=== PATIENT | female | born 1995 | race Caucasian/White ===

== ENCOUNTER 2021-06-25 09:09 | Emergency (ER) | payer OTHER ==
[~2021-06-25] VITALS: Ht 180.3 cm; Wt 95.2 kg
[2021-06-25 09:11] VITALS: BP 115/77
--- OUTSIDE RECORDS SUMMARY | 2021-06-25 09:15 | XMS REPORT | Clinical Summary ---
Author Author [facility] Organization [facility] Address Unknown Phone Unavailable Care Team Providers Care Ed Tech Name Role Phone PCP Unavailable Allergies Not on File Medications Not on file Active Problems Not on file Social History Date Tobacco Use Types Packs/Day Years Used Never Assessed Sex Assigned at Date Recorded Not on file Last Filed Vital Signs Not on file Plan of Treatment Health Maintenance Due Date Last Done Comments Td/Tdap# 1997 HPV Vaccine (1 - 2-dose 2008 series) COVID-19 Vaccine (1) 2009 Cervical Cancer Screening 2018 via Pap Smear Influenza Vaccine (#1) 2021 Pneumococcal Vaccine: Aged Out No longer eligib le based on patient's age to Pediatrics (0 to 5 Years) complete this topic and At-Risk Patients (6 to 64 Years) Results Not on filefrom Last 3 Months Insurance Type Payer Benefit Subscriber ID Effective Phone Address Plan / Dates Group Indemnity [employer] PB [id number] PRETRANSPL -Present ANT
[2021-06-25] MEDS ORDERED: AMOX500C2 PO (09:28)
--- NOTE | 2021-06-25 09:28 | ED EENT ---
History of Present Illness General Chief Complaint: Dental Problems/Pain Stated Complaint: DENTAL PAIN/FACIAL SWELLING Nursing Triage Note: PT C/O L SIDED DENTAL PAIN AND SWELLING. Source: patient Exam Limitations: no limitations History of Present Illness Date Seen by Provider: Jun 25, 2021 Time Seen by Provider: 09:17 Initial Comments Here with report of left upper jaw pain and swelling. Is worried about the swelling and wants to get that taken care of so it does not get worse. She is not having significant pain currently. She knows that she needs to follow with a dentist and will work on that this week. Denies injury or fever. Pain seems to be coming from the premolar on the upper on the left. Timing/Duration: gradual, yesterday Severity: mild Location: mouth, dental Prearrival Treatment: no prearrival treatment Associated Symptoms: No cough, No drooling, No fever, No nasal congestion/drainage, No sinus infection, No tooth pain Allergies and Home Medications Allergies Coded Allergies: No Known Drug Allergies (Unverified , 06/25/21) Home Medications Amoxicillin 500 Mg Capsule, 500 MG PO TID Prescribed by: RHEA BURT on 06/25/21 0928 Patient Home Medication List Home Medication List Reviewed: Yes Review of Systems Review of Systems Constitutional: see HPI; No chills, No fever Ears: No Symptoms Reported Nose: no symptoms reported Mouth: see HPI, pain, swelling Throat: no symptoms reported Respiratory: No cough, No short of breath Gastrointestinal: No nausea, No vomiting Past Exlidfg-Hnbjdu-Azudqa Hx Patient Social History Tobacco Use?: No Substance use?: No Alcohol Use?: Yes Alcohol Frequency: Rarely Pt feels they are or have been: No Past Medical History Surgeries: No Respiratory: No Cardiac: No Physical Exam Vital Signs Vital Signs - First Documented 06/25/21 09:11 Pulse 104 Resp 16 B/P (MAP) 115/77 (90) Pulse Ox 98 O2 Delivery Room Air Height, Weight, BMI Height: '" Weight: lbs. oz. kg; 29.00 BMI Method: General Appearance: WD/WN, no apparent distress Eyes: bilateral eye normal inspection, bilateral eye PERRL, bilateral eye EOMI Mouth/Throat: dental tenderness (14.), maxillary swelling (Left-sided around area #14) Neck: full range of motion, supple, normal inspection Cardiovascular: regular rate, rhythm, no murmur Respiratory: lungs clear, normal breath sounds Neurologic/Psychiatric: alert, oriented x 3 Progress/Results/Core Measures Results/Orders Vital Signs/I&O 06/25/21 09:11 Pulse 104 Resp 16 B/P (MAP) 115/77 (90) Pulse Ox 98 O2 Delivery Room Air Blood Pressure Mean: 90 Progress Progress Note : Progress Note Seen and evaluated. Discharged home with return precautions. Patient verbalized understanding instructions and agreement with plan. We will initiate outpatient amoxicillin. Prescription sent to pharmacy. Patient appreciative. Departure Impression Primary Impression: Dental abscess Disposition: HOME, SELF-CARE Condition: Stable Departure-Patient Inst. Decision time for Depature: 09:26 Referrals: NO,LOCAL PHYSICIAN (PCP/Family) Primary Care Physician Patient Instructions: Tooth Abscess (DC) Add. Discharge Instructions: All discharge instructions reviewed with patient and/or family. Voiced under standing. Take medications as directed. You may use salt water runs by putting 1 teaspoon of salt and a cup of water and swishing and spitting that 3 times a day. Continue to brush her teeth. For your first dose of antibiotics, take 2 tablets on your first dose and then 1 tablet every 8 hours after that until complete. It is important that you follow-up with a dentist. You may take ibuprofen 600 mg every 8 hours as needed for pain. You may also take Tylenol/acetaminophen 1000 mg every 8 hours as needed for pain. Return for increasing pain, increasing redness or swelling, fever, vomiting or other concerns as needed. Remember that the antibiotics may decrease the effectiveness of your control. Scripts Amoxicillin (Amoxicillin) 500 Mg Capsule 500 MG PO TID, #30 CAP 0 Refills Prov: RHEA BURT MD 06/25/21 Images Mouth/Nose 1 - Caries, Swelling, Tenderness RHEA BURT MD Jun 25, 2021 09:28
== END 2021-06-25 09:30 | disposition home or self-care (01) ==
LOC: ER 09:12
DX: K04.7 Periapical abscess without sinus (principal)
CPT/HCPCS: 99282